=== PATIENT | male | born 2000 | race Hispanic/Latino ===

== ENCOUNTER 2018-10-15 20:22 | Emergency (ER) | payer MEDICAID, OTHER ==
[2018-10-15] MEDS ORDERED: ACETAMINOPHEN EXTRA STRENGTH 500 MG TABLET ONE (20:57)
== END 2018-10-15 21:33 | disposition home or self-care (01) ==
LOC: EDH 20:22
DX: S06.0X0A Concussion without loss of consciousness, initial encounter (principal); Z88.0 Allergy status to penicillin; Z72.0 Tobacco use; W50.0XXA Accidental hit or strike by another person, initial encounter; Y93.67 Activity, basketball; Y92.89 Other specified places as the place of occurrence of the external cause; Y99.8 Other external cause status
CPT/HCPCS: 99282

== ENCOUNTER 2025-08-18 18:35 | Emergency (ER) | payer SELFPAY ==
[~2025-08-18] VITALS: Ht 180.3 cm; Wt 82.6 kg
[2025-08-18 18:36] VITALS: BP 152/100; PULSE 99; RESP 16; TEMP 98.4
--- NOTE | 2025-08-18 18:44 | ERN ---
ED Note History of Present Illness Stated Complaint: LAC TO RT EYEBROW Chief Complaint: Laceration/Avulsion Time Seen by MD: 18:38 Dictation: PATIENT PATIENT IS A 25-YEAR-OLD MALE COMING IN TODAY WITH A LACERATION TO HIS RIGHT UPPER EYELID THAT IS HE SUSTAINED TWO DAYS AGO AFTER HE FELL OFF A GOLF CART. NO LOC NO NAUSEA VOMITING. STATES HE WOULD NOT GO TO THE HOSPITAL AT THAT TIME AND WAITED UNTIL TODAY TO COME TO BE SEEN. BUTTERFLY DRESSING WAS PLACED BY HIM TWO DAYS AGO. LAST TETANUS SHOT IS UNKNOWN. Allergies: Coded Allergies: No Known Allergies (Unverified Allergy, Unknown, 08/18/25) Past Medical History Past Medical History: No Pertinent History Surgical History: None RN Note Reviewed/Agreed w/PFSH: Yes Review of System Dictation CONSTITUTIONAL: NEGATIVE EXCEPT FOR HPI HEAD/FACE: NEGATIVE EXCEPT FOR HPI RIGHT UPPER BROW LACERATION EENT: NEGATIVE EXCEPT FOR HPI RESPIRATORY: NEGATIVE EXCEPT FOR HPI GASTROINTESTINAL/ABDOMINAL: NEGATIVE EXCEPT FOR HPI GENITOURINARY: NEGATIVE EXCEPT FOR HPI MUSCULOSKELETAL: NEGATIVE EXCEPT FOR HPI INTEGUMENTARY: NEGATIVE EXCEPT FOR HPI NEUROLOGICAL/PSYCH: NEGATIVE EXCEPT FOR HPI HEMATOLOGIC/LYMPHATIC: NEGATIVE EXCEPT FOR HPI ALL SYSTEMS NEGATIVE, EXCEPT NOTED ABOVE. 13 POINT REVIEW OF SYSTEMS ASSESSED AND ALL NEGATIVE EXCEPT FOR ABOVE. Initial Vital Sign VS Vital Signs Date Time Temp Pulse Resp B/P (MAP) Pulse Ox O2 Delivery O2 Flow Rate FiO2 08/18/25 18:36 98.4 99 16 152/100 85 Room Air 0 Physical Exam Dictation VITAL SIGNS REVIEWED GENERAL APPEARANCE: ALERT, ORIENTED X 3, NO ACUTE DISTRESS, WELL DEVELOPED, NOURISHED. NO PAIN HEAD AND FACE: 3.2 CM LACERATION TO RIGHT UPPER PALPEBRAL FOLD. WOUND BED IS DRY EDGES OR CURLING UNABLE TO AFFECT REPAIR EYES: PERRL, PINK CONJUNCTIVAS, IRRITABLE EARS: PINNAS INTACT AND NO SIGNS OF TRAUMA OR ERYTHEMA EAR CANALS CLEAR AND NO DISCHARGE TM NO ERYTHEMA NOSE: NO DISCHARGE, NO BLEEDING. OROPHARYNX: MOUTH NORMAL, TONGUE PINK, PHARYNX CLEAR,NO ERYTHEMA, TONSILS NO EXUDATES, NO ABSCESSES NOTED, MUCOUS MEMBRANE MOIST NECK: SUPPLE, NON-TENDER, NO THYROMEGALY, NO MASSES, NO JVD, NO BRUITS BREAST:DEFERRED CHEST:NO TENDERNESS, NO CREPITUS, NO PARADOXICAL MOVEMENT, NO RETRACTIONS LUNGS:CLEAR, WELL-VENTILATED, SYMMETRIC, NO RALES, NO WHEEZING, NO RHONCHI, NO STRIDOR, GOOD BREATH SOUNDS BILATERALLY HEART: REGULAR RATE, REGULAR RHYTHM, NO MURMUR, NO GALLOPS VASCULAR: NO PERIPHERAL EDEMA, ABDOMEN: SOFT, POSITIVE BOWEL SOUNDS, NONDISTENDED, NO GUARDING, NONTENDER, NO REBOUND, NO MASSES NO HEPATOMEGALY, NO SPLENOMEGALY, NO ARANDA'S SIGN, NO HERNIAS. RECTAL: DEFERRED GENITAL: DEFERRED NEUROLOGICAL: NORMAL SPEECH, MOTOR FUNCTION INTACT, SENSORY FUNCTION INTACT MUSCULOSKELETAL: NECK NONTENDER, FULL RANGE OF MOTION, BACK NONTENDER, FULL RANGE OF MOTION, EXTREMITIES: NONTENDER, FULL RANGE OF MOTION SKIN: COLOR PINK, RIGHT PALPEBRAL FOLD LACERATION THAT IS GRANULATING LYMPHATIC: DEFERRED Results (Laboratory/Radiology) Labs Reviewed?: Yes ED Course ED Course Orders Procedure Category Date Status Time Neomy PHA 08/18/25 In Process Sulf/Bacitra/Polymyxin 19:00 Tetanus,Diphtheria PHA 08/18/25 In Process Tox [Adult] (Diphther 19:00 Current Medications Medications (Trade) Dose Ordered Sig/Jeny Route PRN Reason Start Time Stop Time Status Last Admin Dose Admin Neomycin/ Polymyxin/ Bacitracin (Triple Antibiotic Ointment) 1 appl ONCE ONCE TP 08/18/25 19:00 08/18/25 19:01 Tetanus/ Diphtheria Toxoids Adsorbed (DiphthERIA-teTANUS TOXOID [ADULT]/ DECAVAC) 0.5 ml ONCE ONCE IM 08/18/25 19:00 08/18/25 19:01 Vital Signs Date Time Temp Pulse Resp B/P (MAP) Pulse Ox O2 Delivery O2 Flow Rate FiO2 08/18/25 18:36 98.4 99 16 152/100 85 Room Air 0 1845/EXPLAINED TO PATIENT NO REPAIR WAS POSSIBLE AT THIS TIME. I WE WILL UPDATE TETANUS PRESCRIBED ANTIBIOTICS AND HAVE HIM FOLLOW UP WITH HIS DOCTOR Medical Decision Making MDM MEDICAL DECISION-MAKING BASED ON HISTORY ON HPI UPDATING TETANUS NO PAIN AT THIS TIME. PATIENT IS AWARE HE IS WAITED TOO LONG AND LACERATION IS GRANULATING. VERY POOR CHANCE FOR GOOD COSMESIS DISCHARGED HOME DX & DISP Disposition: Discharge Departure Impression: Primary Impression: Eyelid laceration, right Condition: Stable Scripts Mupirocin (Bactroban 2% Oint) 2 % Oint 1 APPL TP TID for 5 Days, #15 GM 0 Refills apply to affected area(s) Prov: MELANIE TAVAREZ NP 08/18/25 Cephalexin (Cephalexin) 500 Mg Tablet 1 TAB PO TID for 10 Days, #30 TAB 0 Refills Prov: MELANIE TAVAREZ NP 08/18/25 Additional Instructions: FOLLOW-UP WITH PRIMARY CARE PROVIDER IN 1 TO 2 DAYS. TAKE MEDICATIONS DIRECTED HERE IN THE EMERGENCY ROOM. OKAY TO CONTINUE HOME MEDICATIONS UNLESS OTHERWISE DISCUSSED DURING YOUR VISIT IN THE EMERGENCY ROOM TODAY. RETURN TO YOUR NEAREST EMERGENCY ROOM IF SYMPTOMS WORSEN OR IF THERE IS NO IMPROVEMENT. CALL 911 IF YOU NEED IMMEDIATE ASSISTANCE. TAKE TYLENOL OR MOTRIN OVER-THE- COUNTER NEEDED AND IF NO CONTRAINDICATIONS ARE PRESENT. INCREASE ORAL HYDRATION. A WOUND CULTURE OR URINE CULTURE WAS ORDERED HERE IN THE EMERGENCY ROOM DEPARTMENT PLEASE FOLLOW-UP WITH PRIMARY CARE PROVIDER AND ADVISE THEM TO GET REPEAT PORTS FROM OUR FACILITY. IF YOU HAD ANY LESLIE WRAP/SPLINTS THAT WERE APPLIED HERE, PLEASE DO NOT REMOVE THEM UNTIL YOU SEE YOUR PRIMARY CARE OR SPECIALTY. OKAY TO WASH FACIAL WITH SOAP AND WATER. DRY GENTLY THE LACERATION. APPLY ANTIBIOTIC OINTMENT 3 TIMES A DAY FOR FIVE DAYS. TAKE ANTIBIOTICS DIRECTED UNTIL GONE AND SEE YOUR PRIMARY CARE DOCTOR FOR FOLLOW UP. Referrals: SELF,REFERRAL (PCP) Time of Disposition: 18:48 I have reviewed the case, and I agree with, Diagnosis and Plan MELANIE TAVAREZ NP Aug 18, 2025 18:44
[2025-08-18] MEDS ORDERED: CEPH500T PO (18:50)
[2025-08-18] MEDS ORDERED: MUPI22O TP (18:50)
[2025-08-18] MEDS: NEOMY SULF/BACITRA/POLYMYXIN B 1 EACH PACKET TP ONE (20:36)
== END 2025-08-18 20:38 | disposition home or self-care (01) ==
LOC: EDH 18:35
DX: S01.111A Laceration without foreign body of right eyelid and periocular area, initial encounter (principal); W18.30XA Fall on same level, unspecified, initial encounter; Y93.89 Activity, other specified; Y92.89 Other specified places as the place of occurrence of the external cause; Y99.8 Other external cause status
CPT/HCPCS: 90471; 90714; 99283